=== PATIENT | female | born 1945 | race Caucasian/White ===

== ENCOUNTER → 2017-08-16 13:48 | Observation (INO) ==
[2017-08-15 11:03] VITALS: BMI 48.4
--- NOTE | 2017-08-15 12:16 | XRay Report ---
Indication: aflutter PROCEDURE: XR chest 1V: Encounter: Initial Comparison: September 22, 2015 Findings: The lungs are mildly hypoinflated but grossly clear. There is no pleural effusion or pneumothorax. The heart size, pulmonary vascularity and mediastinal contours are unchanged. IMPRESSION: No acute cardiopulmonary disease. .
--- NOTE | 2017-08-15 14:56 | Transesophageal Echocardiogram ---
DATE OF PROCEDURE August 15, [address] Sandra Snider The patient is a pleasant 72-year-old lady who was found to have atrial fibrillation of unknown duration with rapid ventricular rate and was referred for further evaluation by transesophageal echocardiogram and possible cardioversion. Informed consent was obtained after explaining the procedure and the potential risks to the patient who agreed to proceed with the procedure. PROCEDURE 1. Transesophageal echocardiogram. 2. DC cardioversion. Conscious sedation was performed using Versed and fentanyl. Cetacaine spray was used for pharyngeal anesthesia. Probe was advanced into the esophagus and stomach and multiple images were obtained. Left atrium is dilated. Left ventricle end-diastolic dimension is normal. Left ventricle wall thickness is normal. LV systolic function appears to be normal with ejection fraction of 55%. Right atrium is normal. Right ventricle is normal. Aortic root dimension is normal. There is no thrombus in left atrium, left atrial appendage or left ventricle. Mitral valve is morphologically normal with mild mitral regurgitation. Aortic valve is a trileaflet structure with no stenosis or insufficiency. Tricuspid valve shows mild tricuspid regurgitation. Pulmonary valve shows mild pulmonary insufficiency. There is no pericardial effusion. Agitated saline was injected which showed no evidence of [id number] shunt. Descending thoracic aorta shows mild atherosclerosis. IMPRESSION 1. No intracardiac thrombus or mass. 2. Left atrial dilation. 3. Normal LV systolic function with ejection fraction of 55%. 4. Mild mitral regurgitation. 5. Mild tricuspid regurgitation. 6. Mild pulmonary insufficiency. 7. Mild atherosclerosis of the descending thoracic aorta. After reviewing the images we decided to proceed with cardioversion. Anterior- posterior Zoll pads were applied. 360 joules of energy was delivered in synchronized manner and patient converted to sinus. However, shortly after converting to sinus, she reverted back to atrial fibrillation. 150 mg of amiodarone was given and repeat cardioversion was performed at the previous setting and patient converted from atrial fibrillation to sinus rhythm. She tolerated the procedure well with no complications. IMPRESSION 1. Successful DC cardioversion of atrial fibrillation to sinus rhythm. PLAN Will start her on anticoagulation and keep her on antiarrhythmics to maintain sinus. [facility]
[2017-08-15] MEDS: SOTALOL 80 MG TABLET PO SCH (17:44)
[2017-08-15] MEDS: APIXABAN 5 MG TABLET PO SCH (21:42)
[2017-08-16] MEDS: SOTALOL 80 MG TABLET PO SCH ×2 (06:47→10:19)
[2017-08-16] MEDS: APIXABAN 5 MG TABLET PO SCH (09:37)
--- NOTE | 2017-08-16 10:41 | Discharge Summary ---
<Elma Barba - Last Filed: 08/16/17 12:50> Discharge Information Date of admission: 08/15/17 10:25 Anticipated date of discharge: 08/16/17 Attending Physician: Delfin Camacho MD Primary care physician: Sandra Snider MD - Procedures Procedures: Date of Exam: 08/15/17 Type of Exam(s): US megan w/ doppler DATE OF PROCEDURE August 15, [address] Sandra Snider The patient is a pleasant 72-year-old lady who was found to have atrial fibrillation of unknown duration with rapid ventricular rate and was referred for further evaluation by transesophageal echocardiogram and possible cardioversion. Informed consent was obtained after explaining the procedure and the potential risks to the patient who agreed to proceed with the procedure. PROCEDURE 1. Transesophageal echocardiogram. 2. DC cardioversion. Conscious sedation was performed using Versed and fentanyl. Cetacaine spray was used for pharyngeal anesthesia. Probe was advanced into the esophagus and stomach and multiple images were obtained. Left atrium is dilated. Left ventricle end-diastolic dimension is normal. Left ventricle wall thickness is normal. LV systolic function appears to be normal with ejection fraction of 55%. Right atrium is normal. Right ventricle is normal. Aortic root dimension is normal. There is no thrombus in left atrium, left atrial appendage or left ventricle. Mitral valve is morphologically normal with mild mitral regurgitation. Aortic valve is a trileaflet structure with no stenosis or insufficiency. Tricuspid valve shows mild tricuspid regurgitation. Pulmonary valve shows mild pulmonary insufficiency. There is no pericardial effusion. Agitated saline was injected which showed no evidence of [id number] shunt. Descending thoracic aorta shows mild atherosclerosis. IMPRESSION 1. No intracardiac thrombus or mass. 2. Left atrial dilation. 3. Normal LV systolic function with ejection fraction of 55%. 4. Mild mitral regurgitation. 5. Mild tricuspid regurgitation. 6. Mild pulmonary insufficiency. 7. Mild atherosclerosis of the descending thoracic aorta. After reviewing the images we decided to proceed with cardioversion. Anterior- posterior Zoll pads were applied. 360 joules of energy was delivered in synchronized manner and patient converted to sinus. However, shortly after converting to sinus, she reverted back to atrial fibrillation. 150 mg of amiodarone was given and repeat cardioversion was performed at the previous setting and patient converted from atrial fibrillation to sinus rhythm. She tolerated the procedure well with no complications. IMPRESSION 1. Successful DC cardioversion of atrial fibrillation to sinus rhythm. PLAN Will start her on anticoagulation and keep her on antiarrhythmics to maintain sinus. - Laboratory Labs: 08/16/17 07:11 08/16/17 07:11 Laboratory Tests 08/15/17 08/15/17 08/16/17 11:35 11:35 06:36 WBC 7.0 RBC 4.91 Hgb 11.9 L Hct 38.9 MCV 79.2 L MCH 24.2 L MCHC 30.6 L RDW Std Deviation 45.0 Plt Count 320 MPV 9.8 Immature Gran % (Auto) 0.0 Neut % (Auto) 45.1 Lymph % (Auto) 42.9 Centre % (Auto) 8.5 Eos % (Auto) 2.6 Baso % (Auto) 0.9 Neut # (Auto) 3.2 Lymph # (Auto) 3.0 Centre # (Auto) 0.6 Eos # (Auto) 0.2 Baso # (Auto) 0.1 Abs Immat Gran (auto) 0.00 Turbidity < 20 Sodium 146 H Potassium 4.3 Chloride 108 H Carbon Dioxide 27 Anion Gap 11 BUN 17.0 Creatinine 0.8 GFR Calculation 71 BUN/Creatinine Ratio 21 Glucose 106 Glucometer 157 Calculated Osmolality 283 H Calcium 10.0 Magnesium 1.6 Icterus Index < 2 Troponin I < 0.012 TSH 2.04 Specimen Hemolysis < 15 08/16/17 08/16/17 07:11 07:11 WBC 6.3 RBC 4.74 Hgb 11.6 L Hct 37.5 MCV 79.1 L MCH 24.5 L MCHC 30.9 L RDW Std Deviation 44.7 Plt Count 333 MPV 9.4 Immature Gran % (Auto) Neut % (Auto) Lymph % (Auto) Centre % (Auto) Eos % (Auto) Baso % (Auto) Neut # (Auto) Lymph # (Auto) Centre # (Auto) Eos # (Auto) Baso # (Auto) Abs Immat Gran (auto) Turbidity < 20 Sodium 143 Potassium 4.3 Chloride 106 Carbon Dioxide 27 Anion Gap 10 BUN 16.0 Creatinine 0.9 GFR Calculation 62 BUN/Creatinine Ratio 18 Glucose 150 H Glucometer Calculated Osmolality 279 Calcium 9.9 Magnesium 1.5 L Icterus Index < 2 Troponin I TSH Specimen Hemolysis < 15 - Radiology Radiology: Date of Exam: 08/15/17 Ordering Provider: Elma Barba APRN Type of Exam(s): XR chest 1V Reason for Exam(s): aflutter Indication: aflutter PROCEDURE: XR chest 1V: Encounter: Initial Comparison: September 22, 2015 Findings: The lungs are mildly hypoinflated but grossly clear. There is no pleural effusion or pneumothorax. The heart size, pulmonary vascularity and mediastinal contours are unchanged. IMPRESSION: No acute cardiopulmonary disease. History of Present Illness HPI: Dejah is a 72 year old female who is well known to Dr. Camacho's practice with a history of CAD with 2 stents to the LAD and 1 stent to the Circ in 2016, HTN, HLD and DM type II who was seen in the office today and found to be in Atrial flutter. She was admitted directly into CCU for MEGAN, DCCV and AAT. Hospital Course This is a general summary of the patient's hospital course. For more details refer to the complete medical record. Hospital course: She was successfully converted after conscious sedation and 2nd synchronized shocks with 360 joules. She was started on Amiodarone IV drip and Sotalol 40mg by mouth BID for antiarrhythmic therapy. She had some asymptomatic bradycardia with sotalol and Amiodarone, so Amiodarone was stopped. Time spent with patient: 25 - 35 minutes DVT Prophylaxis: Eliquis Exam Vital signs: Temperature 98.3 F 08/16/17 08:00 Pulse Rate 61 08/16/17 10:19 Respiratory Rate 43 H 08/16/17 09:30 Blood Pressure 118/59 08/16/17 09:00 Pulse Oximetry 96 08/16/17 09:30 - Constitutional no acute distress, cooperative - Routine HEENT Exam Head: Present: normocephalic ENT: Present: mucous membranes moist - Routine Neck Exam Absent: JVD, carotid bruit - Routine Chest/Breast/Axilla Exam Chest wall: Absent: tenderness - Routine Respiratory Exam Present: CTA bilaterally. Absent: rales, wheezes - Routine Cardiovascular Exam Present: RRR, no murmur. Absent: JVD - Routine Abdominal Exam Present: soft, normoactive bowel sounds - Routine Extremities Exam Present: no edema - Routine Skin Exam Present: intact, dry, warm - Routine Neurological Exam Present: alert, oriented X3 - Routine Psychiatric Exam Present: normal affect, normal thought process Results 10/06/17 07:11 08/16/17 07:11 Cardiac Enzymes 08/15/17 Range/Units 11:35 Troponin I < 0.012 (0-0.12) ng/ml CBC 08/15/17 08/16/17 Range/Units 11:35 07:11 WBC 7.0 6.3 (4.5-11.0) T/MM3 RBC 4.91 4.74 (4.00-5.20) M/MM3 Hgb 11.9 L 11.6 L (12-16) GM/DL Hct 38.9 37.5 (36-46) % Plt Count 320 333 (130-400) T/MM3 Neut # (Auto) 3.2 (1.8-7.7) T/MM3 Lymph # (Auto) 3.0 (1-4.8) T/MM3 Centre # (Auto) 0.6 (0-0.8) T/MM3 Eos # (Auto) 0.2 (0-0.5) T/MM3 Baso # (Auto) 0.1 (0-0.2) T/MM3 Comprehensive Metabolic Panel 08/15/17 08/16/17 Range/Units 11:35 07:11 Sodium 146 H 143 (134-144) MEQ/L Potassium 4.3 4.3 (3.6-5) MEQ/L Chloride 108 H 106 (98-107) MEQ/L Carbon Dioxide 27 27 (22-30) MEQ/L BUN 17.0 16.0 (7-17) MG/DL Creatinine 0.8 0.9 (0.7-1.2) MG/DL Glucose 106 150 H (65-110) MG/DL Calcium 10.0 9.9 (8.4-10.2) MG/DL Intake and Output 08/15/17 08/16/17 08/16/17 22:59 06:59 14:59 Intake Total 453.619 / 453.619 373.6 / 373.6 236.758 / 236.758 Balance 453.619 / 453.619 373.6 / 373.6 236.758 / 236.758 Intake: IV 253.619 / 253.619 133.6 / 133.6 73.758 / 73.758 Amiodarone 900 mg In NS 253.619 / 253.619 133.6 / 133.6 73.758 / 73.758 500ml 500 ml @ 1 MG/MIN 33.33 mls/hr IV .[id number] [facility] Rx#:[id number] Oral 200 / 200 240 / 240 163 / 163 Other: Stool Consistency Soft Formed Size of Bowel Movement Large # Voids 2 2 # Bowel Movements 2 - Imaging and Cardiology Echo: report reviewed - EKG Interpretation EKG: sinus rhythm Discharge Plan - Med Rec/Dispo Referrals/Follow Up: Delfin Camacho MD [Physician] - 09/12/17 9:10 am [facility] Instructions: Atrial Flutter (DC), Cardioversion (DC) Prescriptions: New Apixaban [Eliquis] 5 mg PO BID #60 tab Sotalol [Betapace] 40 mg PO ACBID #30 tab Continue Acetaminophen [Tylenol Extra Strength] 2 tab PO Q6H PRN #0 PRN Reason: PAIN Amlodipine Besylate 1 tab PO DAILY #30 Lovastatin 1 tab PO HS #0 Zestril (lisinopril) 40 mg tablet 40 mg PO DAILY tab Glucophage (metformin) 500 mg tablet 1,000 mg PO BID acetaminophen 300 mg-codeine 30 mg tablet 1 tab PO Q6HR PRN PRN Reason: Pain Amaryl (glimepiride) 2 mg tablet 1 mg PO QAM Discontinued Toprol XL (metoprolol succinate ER) 50 mg tablet, 24 hr 50 mg PO DAILY tab - Disposition 01 Discharged Home, Self-Care <Delfin Camacho - Last Filed: 08/19/17 13:25> Discharge Information Date of admission: 08/15/17 10:25 Attending Physician: Delfin Camacho MD Primary care physician: Sandra Snider MD - Laboratory Labs: 08/16/17 07:11 08/16/17 07:11 Hospital Course This is a general summary of the patient's hospital course. For more details refer to the complete medical record. Exam Vital signs: Temperature 98.1 F 08/16/17 13:00 Pulse Rate 63 08/16/17 13:00 Respiratory Rate 19 08/16/17 13:00 Blood Pressure 165/73 H 08/16/17 13:00 Pulse Oximetry 96 08/16/17 13:00 Results 08/16/17 07:11 08/16/17 07:11 Discharge Plan - Med Rec/Dispo - Attestation Attestation Narrative: 08/19/17 13:25 Recommendation After examining the patient I agree with the above assessment. I am involved in the formulation of the patient's plan of care.
[~2017-08-16 13:48] MED LIST: ACETAMINOPHEN 325 MG TABLET PO PRN; AMIODARONE 150 MG in NS 100 ML IV ONE; AMIODARONE 900 MG in NS 500ml 500 ML IV SCH; APAP/CODEINE 300 MG/30 MG TABLET PO PRN; DiltiaZEM 25 MG/5 ML INJECTION IVP ONE; DiltiaZEM Drip 125 MG in NS 125 ML IV SCH; ENOXAPARIN 150 MG/ML INJECTION SQ SCH; FentaNYL 100 MCG/2 ML INJECTION IVP ONE; GLIMEPIRIDE 2 MG PO SCH; LOVASTATIN 20 MG PO SCH; METFORMIN 500 MG TABLET PO SCH; MIDAZOLAM 2mg/2ml INJECTION IVP ONE; NS 0.9% INJ ONE; ONDANSETRON 4 MG/2 ML INJECTION IVP PRN; POM AMLODIPINE 5 MG TABLET PO SCH; POM LISINOPRIL 40 MG TABLET PO SCH; SALINE FLUSH 10ml SYRINGE ONE
[2017-08-16 13:53] VITALS: BP 165/73; PULSE 63; RESP 19; TEMP 98.1; O2SAT 96
== END | disposition home or self-care (01) ==
LOC: CCU
PROVIDERS: ADMIT Internal Medicine Cardiovascular Disease; ATTEND Internal Medicine Cardiovascular Disease